=== PATIENT | male | born 1965 | race African-American/Black ===

== ENCOUNTER 2025-01-25 15:08 | Emergency (ER) | payer OTHER ==
[~2025-01-25] VITALS: Ht 175.3 cm; Wt 91.0 kg
[2025-01-25 15:10] VITALS: O2SAT 100
[2025-01-25] MEDS: CYCLOBENZAPRINE 10MG TABLET PO ONE (16:39)
[2025-01-25] MEDS: IBUPROFEN 400MG TABLET PO ONE (16:39)
[2025-01-25] MEDS: LIDOCAINE 5% PATCH TOP SCH (16:40)
[2025-01-25] MEDS ORDERED: IBUP-2028 MT (17:38)
[2025-01-25 17:57] VITALS: BP 165/91; PULSE 70; RESP 16; TEMP 36.9; O2SAT 100
== END 2025-01-25 17:59 | disposition home or self-care (01) ==
LOC: ER 15:08
DX: M54.50 Low back pain, unspecified (principal); M79.18 Myalgia, other site; I10 Essential (primary) hypertension
CPT/HCPCS: 72070; 72100; 99284